=== PATIENT | female | born 1970 | race Caucasian/White ===

== ENCOUNTER 2019-10-05 17:26 | Emergency (ER) | payer OTHER, SELFPAY ==
[2019-10-05 17:38] VITALS: BP 143/90; PULSE 108; RESP 18; TEMP 38.1; O2SAT 98
--- NOTE | 2019-10-05 17:54 | ED.GENADULT ---
HPI - General Adult General Chief complaint: Abdominal Pain Stated complaint: Pressure in Face Time Seen by Provider: 10/05/19 17:54 Source: patient and RN notes reviewed Mode of arrival: ambulatory Limitations: no limitations History of Present Illness HPI narrative: 48-year-old female presents with complaints of upper respiratory infection, facial congestion, LT facial pressure, and LT otalgia for 1 day. Orajel today and daily saline nasal lavage without relief. History of sinusitis. No facial swelling. Denies cough. Denies chest congestion. Nasal congestion without rhinorrhea. Denies sore throat. No high fevers, drooling, neck or throat swelling. No voice change. No nausea, vomiting, or abdominal pain. Tolerating liquids well. Denies headaches, chills, dyspnea, difficulty swallowing, jaw pain, dental pain, foreign body sensation, and rash. No chest pain or shortness of breath. Remains active. Some parts of this dictation were generated by voice recognition software and may contain typographical and/or grammatical inaccuracies. Related Data Home Medications Medication Instructions Recorded Confirmed albuterol sulfate 90 mcg/actuation 1 puff INHALATION Q4H PRN 07/19/19 10/05/19 aerosol inhaler conjugated estrogens 0.625 mg/gram 0.625 mg VAGINAL DAILY 07/19/19 10/05/19 vaginal cream levothyroxine 175 mcg tablet 175 mcg PO DAILY 07/19/19 10/05/19 omeprazole 40 mg capsule,delayed 40 mg PO DAILY 07/19/19 10/05/19 release semaglutide [Ozempic] mg SUBCUT 10/05/19 Allergies Allergy/AdvReac Type Severity Reaction Status Date / Time metformin Allergy Mild stomach Verified 10/05/19 17:46 cramps quinapril Allergy Unknown Unknown Verified 10/05/19 17:46 Review of Systems Review of Systems: Narrative: CONSTITUTIONAL: Denies fever, chills, sweats. EYES: Denies visual changes, redness, discharge. ENT: Complains of congestion, facial congestion and pressure, LT otalgia. Denies rhinorrhea, sore throat. CARDIOVASCULAR: Denies chest pain, palpitations, edema. RESPIRATORY: Denies dyspnea, wheezing. Complains of dry cough/intermittent productive cough. GASTROINTESTINAL: Denies abdominal pain, nausea, vomiting, diarrhea. GENITOURINARY: Denies dysuria, hematuria, abnormal discharge SKIN: Denies rash or itching. MUSCULOSKELETAL: Denies acute back pain, joint pain, or myalgia. NEUROLOGIC: Denies numbness, or focal weakness. PSYCHIATRIC: Denies anxiety or depression. [facility] Past Medical History Medical History (Updated 10/05/19 @ 18:[address]) Asthma delivery delivered Essential (primary) hypertension History of gastroesophageal reflux (GERD) Hypothyroidism, unspecified Mixed hyperlipidemia Narcolepsy without cataplexy Obesity, unspecified Sinusitis chronic, ethmoidal Type 2 diabetes mellitus without complication, without long-term current use of insulin Surgical History Surgical History (Updated 10/05/19 @ 18:[address]) H/O section X3 History of cholecystectomy History of knee surgery Right knee for Torn meniscus Family History Family History (Updated 10/05/19 @ 18:[address]) Mother Family history of malignant neoplasm of ovary, Onset Age: 55 Hypertension Father Hypertension Heart disease Sibling Hypertension Diabetes mellitus Social History Social History (Updated 10/05/19 @ 18:[address]) Smoking packs per day: 1 Smoking cigarettes per day: 20.0 Years smoked: 25 Smoking pack-years: 25.00 Smoking status: Current every day smoker Second hand tobacco smoke exposure: Yes Alcohol intake: current Alcohol use details: Occasional Substance use: never Substance use type: does not use Living arrangements: with family Gender identity (if verbalized by the patient): Female Comments At time of signature, agree with nurse past medical, surgical,
[2019-10-05 18:45] VITALS: BP 130/86; PULSE 100
== END 2019-10-05 18:25 | disposition home or self-care (01) ==
PROVIDERS: Emergency Provider Nurse Practitioner Family; PCP Family Medicine
DX: J00 Acute nasopharyngitis [common cold] (principal); J01.90 Acute sinusitis, unspecified; H92.02 Otalgia, left ear; F17.210 Nicotine dependence, cigarettes, uncomplicated; J45.909 Unspecified asthma, uncomplicated; I10 Essential (primary) hypertension; K21.9 Gastro-esophageal reflux disease without esophagitis; E03.9 Hypothyroidism, unspecified; E78.2 Mixed hyperlipidemia; G47.419 Narcolepsy without cataplexy; E11.9 Type 2 diabetes mellitus without complications; E66.9 Obesity, unspecified; Z68.41 Body mass index [BMI] 40.0-44.9, adult
CPT/HCPCS: 99213; G0463

== ENCOUNTER 2019-11-06 10:11 | Outpatient (CLI) | payer OTHER, SELFPAY ==
[2019-11-06 10:41] LABS: Hematocrit 44.6 % (37.0-47.0); Hemoglobin 14.7 g/dL (12.0-15.0); Mean Corpuscular Hemoglobin 28.5 pg (26-34); Mean Corpuscular Volume 86.6 fl (80-100); Mean Platelet Volume 10.1 fl (7.4-10.4); Platelet Count Result 273 k/mm3 (150-375); Red Blood Count 5.15 M/mm3 (4.2-5.4); Red Cell Distribution Width 13.3 % (11.5-14.5); White Blood Count 6.6 K/mm3 (4.5-10.0)
[2019-11-06 10:47] LABS: Hemoglobin A1C 6.5 % (<5.7)
[2019-11-06 10:52] LABS: Alanine Aminotransferase 47 U/L (4-35); Albumin Level 4.2 g/dL (3.5-5.1); Alkaline Phosphatase 109 U/L (38-126); Aspartate Amino Transferase 38 U/L (14-36); Bilirubin,Total 0.4 mg/dL (0.2-1.3); Blood Urea Nitrogen 17 mg/dL (7-17); Calcium 9.8 mg/dL (8.4-10.2); Carbon Dioxide 29 mmol/L (22-30); Chloride 102 mmol/L (98-107); Cholesterol 214 mg/dL (0-200); Estimated Glomerular Filt Rate > 60; Glucose 126 mg/dL (65-105); HDL Direct 49 mg/dL; Potassium 3.6 mmol/L (3.4-5.0); Sodium 139 mmol/L (137-145); Triglycerides 88 mg/dL (<150)
[2019-11-06 11:03] LABS: LDL Cholesterol Direct 131 mg/dL
[2019-11-06 11:21] LABS: Thyroid Stimulating Hormone 0.097 uIU/mL (0.465-4.680)
== END 2019-11-06 10:12 | disposition home or self-care (01) ==
PROVIDERS: PCP Family Medicine; Visit Provider Family Medicine
DX: G47.419 Narcolepsy without cataplexy (principal); I10 Essential (primary) hypertension; E11.9 Type 2 diabetes mellitus without complications; E78.2 Mixed hyperlipidemia; E04.9 Nontoxic goiter, unspecified
CPT/HCPCS: 36415; 80053; 80061; 83036; 84443; 85027

== ENCOUNTER 2020-02-07 07:47 | Outpatient (CLI) | payer OTHER, SELFPAY ==
--- NOTE | ~2020-02-07 | MM_ITS ---
EXAMINATION: MM screening nelida BI w edilson HISTORY: Screening mammogram TECHNIQUE: Craniocaudal and mediolateral oblique 3-D tomosynthesis images were obtained and synthetic 2-D images were generated. CAD analysis was submitted and interpreted. COMPARISON: 07/27/2018, 12/17/2015, 10/09/2013 bilateral digital screening mammogram examinations BREAST PARENCHYMAL COMPOSITION: The breasts are almost entirely fatty. FINDINGS: Stable low-density circumscribed opacities or contiguous opacities in posterior aspect of l ower outer quadrant of right breast. There is no evidence of suspicious mass, calcification, or archi tectural distortion to suggest malignancy in either breast. There has been no suspicious interval venkat nge. IMPRESSION: 1. No mammographic evidence of malignancy. 2. Recommend routine screening mammography in one year. BI-RADS Category 2: Benign finding(s). Reviewed, dictated and finalized at location A.
== END 2020-02-07 07:48 | disposition home or self-care (01) ==
PROVIDERS: PCP Family Medicine; Visit Provider Family Medicine
DX: Z12.31 Encounter for screening mammogram for malignant neoplasm of breast (principal)
CPT/HCPCS: 77063; 77067

== ENCOUNTER 2020-02-27 07:37 | Outpatient (CLI) | payer OTHER, SELFPAY ==
[2020-02-27 08:07] LABS: Hematocrit 43.7 % (37.0-47.0); Hemoglobin 14.4 g/dL (12.0-15.0); Mean Corpuscular Hemoglobin 29.6 pg (26-34); Mean Corpuscular Volume 89.9 fl (80-100); Mean Platelet Volume 10.2 fl (7.4-10.4); Platelet Count Result 292 k/mm3 (150-375); Red Blood Count 4.86 M/mm3 (4.2-5.4); Red Cell Distribution Width 13.1 % (11.5-14.5); White Blood Count 7.6 K/mm3 (4.5-10.0)
[2020-02-27 08:14] LABS: Alanine Aminotransferase 66 U/L (4-35); Albumin Level 4.1 g/dL (3.5-5.1); Alkaline Phosphatase 105 U/L (38-126); Anion Gap 7 mmol/L (8-16); Aspartate Amino Transferase 47 U/L (14-36); Bilirubin,Total 0.4 mg/dL (0.2-1.3); Blood Urea Nitrogen 16 mg/dL (7-17); Calcium 9.3 mg/dL (8.4-10.2); Carbon Dioxide 27 mmol/L (22-30); Chloride 101 mmol/L (98-107); Estimated Glomerular Filt Rate > 60; Glucose 146 mg/dL (65-105); Potassium 3.9 mmol/L (3.4-5.0); Sodium 135 mmol/L (137-145)
[2020-02-27 08:15] LABS: Hemoglobin A1C 6.7 % (<5.7)
[2020-02-27 15:35] LABS: Free T4 Free Thyroxine Reflex 0.85 ng/dL (0.78-2.19)
[2020-02-27 16:20] LABS: Total Triiodothyronine (T3) 0.86 NG/ML (0.97-1.69)
== END 2020-02-27 07:38 | disposition home or self-care (01) ==
LOC: ANHLAB 07:39
PROVIDERS: PCP Family Medicine; Visit Provider Physician Assistant
DX: E03.9 Hypothyroidism, unspecified (principal); I10 Essential (primary) hypertension; E78.2 Mixed hyperlipidemia; E11.9 Type 2 diabetes mellitus without complications
CPT/HCPCS: 36415; 80053; 83036; 84439; 84443; 84480; 85027

== ENCOUNTER 2020-04-28 07:20 | Outpatient (CLI) | payer OTHER, SELFPAY ==
[2020-04-28 08:56] LABS: Free T4 Free Thyroxine 1.42 ng/mL (0.78-2.19)
[2020-04-28 08:57] LABS: Total Triiodothyronine (T3) 0.99 NG/ML (0.97-1.69)
== END 2020-04-28 07:21 | disposition home or self-care (01) ==
PROVIDERS: PCP Family Medicine; Visit Provider Family Medicine
DX: E04.9 Nontoxic goiter, unspecified (principal); E03.9 Hypothyroidism, unspecified
CPT/HCPCS: 36415; 84439; 84443; 84480

== ENCOUNTER 2021-01-01 07:13 | Outpatient (CLI) | payer OTHER, SELFPAY ==
[2021-01-01 08:04] LABS: Alanine Aminotransferase 49 U/L (4-35); Alkaline Phosphatase 90 U/L (38-126); Anion Gap 9 mmol/L (8-16); Aspartate Amino Transferase 35 U/L (14-36); Bilirubin,Total 0.3 mg/dL (0.2-1.3); Blood Urea Nitrogen 18 mg/dL (7-17); Calcium 9.7 mg/dL (8.4-10.2); Carbon Dioxide 26 mmol/L (22-30); Chloride 103 mmol/L (98-107); Cholesterol 223 mg/dL (0-200); Estimated Glomerular Filt Rate > 60; Glucose 139 mg/dL (65-105); HDL Direct 65 mg/dL; Potassium 4.1 mmol/L (3.4-5.0); Sodium 138 mmol/L (137-145); Triglycerides 88 mg/dL (<150)
[2021-01-01 08:06] LABS: Hemoglobin A1C 6.5 % (<5.7)
[2021-01-01 08:16] LABS: LDL Cholesterol Direct 117 mg/dL
[2021-01-01 08:23] LABS: Creatinine Urine 121.4 mg/dL
[2021-01-01 08:33] LABS: MALB Creatinine Ratio < 4.9 mg/g (0-30); Microalbumin Urine Random < 6.0 mg/L (0-16.7)
[2021-01-01 09:27] LABS: Free T4 Free Thyroxine 0.95 ng/mL (0.78-2.19)
== END 2021-01-01 07:14 | disposition home or self-care (01) ==
PROVIDERS: PCP Family Medicine; Visit Provider Family Medicine
DX: E03.9 Hypothyroidism, unspecified (principal); E11.9 Type 2 diabetes mellitus without complications; E78.2 Mixed hyperlipidemia; I10 Essential (primary) hypertension
CPT/HCPCS: 36415; 80053; 80061; 82043; 83036; 84439; 84443

== ENCOUNTER 2021-06-03 17:29 | Emergency (ER) | payer OTHER, SELFPAY ==
[2021-06-03 17:36] VITALS: BP 143/92; PULSE 94; RESP 18; TEMP 35.8; O2SAT 99
--- NOTE | 2021-06-03 17:44 | ED.URI ---
HPI - URI/Sore Throat General Chief Complaint: Upper Respiratory Infection Stated Complaint: Congestion,Sinus Source: patient and RN notes reviewed Mode of arrival: ambulatory History of Present Illness HPI Narrative: This is a 50-year-old female who presented to urgent care with complaints of sore throat, nasal, ear and chest congestion, headaches, she notes that he has a cough with sputum that a brownish color. Patient has a history of having sinus infection she has had for the last 3 days the patient denies SOB, CP, palpitation, extremity numbness, lightheadedness, dizziness, constipation, diarrhea, chills, or fever. MD elicited complaint: cough, sore throat, rhinorrhea, nasal congestion and sinus pain Related Data Allergies Allergy/AdvReac Type Severity Reaction Status Date / Time metformin Allergy Mild stomach Verified 06/03/21 17:36 cramps quinapril Allergy Mild Hives Verified 06/03/21 17:36 Review of Systems Review of Systems: A 14 organ system Review of Systems was performed and pertinent positives included in the HPI, otherwise remaining ROS is negative. [facility] Past Medical History Medical History Asthma delivery delivered Essential (primary) hypertension History of gastroesophageal reflux (GERD) Hypothyroidism, unspecified Mixed hyperlipidemia Morbid (severe) obesity due to excess calories Narcolepsy without cataplexy Obesity, unspecified Sinusitis chronic, ethmoidal Type 2 diabetes mellitus without complication, without long-term current use of insulin Surgical History Surgical History H/O section X3 History of cholecystectomy History of knee surgery Right knee for Torn meniscus Family History Family History Mother Family history of malignant neoplasm of ovary, Onset Age: 55 Hypertension Father Hypertension Heart disease Sibling Hypertension Diabetes mellitus Social History Social History Social History: Smoking packs per day: 0.5 Smoking cigarettes per day: 10.0 Years smoked: 25 Smoking pack-years: 12.50 Smoking status: Former smoker Tobacco type: cigarettes Second hand tobacco smoke exposure: Yes Alcohol intake: current Alcohol use details: Occasionally Substance use: never Substance use type: does not use Gender identity (if verbalized by the patient): Female Sexual Orientation (if Verbalized by the Patient): Straight or Heterosexual Exam Narrative: GENERAL: This is a well-nourished, well-developed patient, in no apparent distress. HEAD: normocephalic, atraumatic. Maxillary tenderness EYES: PERRL. Sclera clear/white. Vision is grossly intact. EARS: External ears normal, auditory canals clear and without drainage, TMs normal without perforation. Hearing grossly intact. NOSE: External nose normal with no obvious nasal discharge, nares without redness, no rhinorrhea. THROAT: Mucous membranes moist, posterior pharynx edematous with erythema. NECK: Neck supple, non-tender without lymphadenopathy, masses or thyromegaly. CARDIOVASCULAR: Regular rate and rhythm without murmurs, gallops, or rubs. RESPIRATORY: Clear to auscultation. Breath sounds equal bilaterally. No wheezes, rales, or rhonchi. GASTROINTESTINAL: Abdomen soft, non-tender, nondistended. Bowel sounds are active. No hepato-splenomegaly, or palpable masses. No guarding. SKIN: warm, intact with no suspicious lesions or rash, good texture and turgor. NEURO: awake, alert, and oriented to person, place and time. There were no obvious focal neurologic abnormalities. Steady gait EXTREMITIES: Normal range of motion. No edema. No calf tenderness. Negative Homans sign bilaterally. BACK: Nontender without deformity or crepitance. No flank tenderne
== END 2021-06-03 18:00 | disposition home or self-care (01) ==
PROVIDERS: Emergency Provider Nurse Practitioner; PCP Family Medicine
DX: J32.9 Chronic sinusitis, unspecified (principal); I10 Essential (primary) hypertension; E78.2 Mixed hyperlipidemia; E11.9 Type 2 diabetes mellitus without complications; Z87.891 Personal history of nicotine dependence
CPT/HCPCS: 99213; G0463

== ENCOUNTER 2021-07-27 07:38 | Outpatient (CLI) | payer OTHER, SELFPAY ==
[2021-07-27 08:06] LABS: Basophils Absolute Auto 0.1 K/mm3 (0.0-0.1); Basophils Percent Auto 0.9 % (0.2-1.2); Eosinophils Absolute Auto 0.2 K/mm3 (0-0.3); Hematocrit 44.4 % (37.0-47.0); Hemoglobin 14.3 g/dL (12.0-15.0); Immature Granulocyte Absolute 0.02 K/mm3 (0.00-0.031); Immature Granulocyte Percent A 0.3 % (0-0.5); Lymphocytes Absolute Auto 2.14 K/mm3 (0.9-3.2); Lymphocytes Percent Auto 28.3 % (18.3-44.2); Mean Corpuscular HGB Conc 32.2 g/dl (32-36); Mean Corpuscular Hemoglobin 28.9 pg (26-34); Mean Corpuscular Volume 89.7 fl (80-100); Monocytes Absolute Auto 0.5 K/mm3 (0.1-0.6); Monocytes Percent Auto 7.1 % (2.6-8.5); Neutrophils Absolute Auto 4.6 K/mm3 (1.3-6.7); Neutrophils Percent Auto 60.4 % (45.5-73.1); Platelet Count Result 272 k/mm3 (150-375); Red Blood Count 4.95 M/mm3 (4.2-5.4); Red Cell Distribution Width 12.6 % (11.5-14.5); White Blood Count 7.6 K/mm3 (4.5-10.0)
[2021-07-27 08:15] LABS: Hemoglobin A1C 8.9 % (<5.7)
[2021-07-27 08:17] LABS: Alanine Aminotransferase 82 U/L (4-35); Albumin Level 4.3 g/dL (3.5-5.1); Alkaline Phosphatase 117 U/L (38-126); Anion Gap 8 mmol/L (8-16); Aspartate Amino Transferase 49 U/L (14-36); Bilirubin,Total 0.5 mg/dL (0.2-1.3); Blood Urea Nitrogen 17 mg/dL (7-17); Calcium 9.6 mg/dL (8.4-10.2); Carbon Dioxide 28 mmol/L (22-30); Chloride 99 mmol/L (98-107); Estimated Glomerular Filt Rate > 60; Glucose 157 mg/dL (65-110); Potassium 3.8 mmol/L (3.4-5.0); Sodium 135 mmol/L (137-145)
[2021-07-27 08:55] LABS: Free T4 Free Thyroxine 1.14 ng/mL (0.78-2.19)
== END 2021-07-27 07:39 | disposition home or self-care (01) ==
LOC: ANHLAB 07:40
PROVIDERS: Nurse Practitioner Gerontology; PCP Family Medicine; Visit Provider Family Medicine
DX: E11.9 Type 2 diabetes mellitus without complications (principal); E03.9 Hypothyroidism, unspecified; E78.2 Mixed hyperlipidemia
CPT/HCPCS: 36415; 80053; 83036; 84439; 84443; 84480; 85025

== ENCOUNTER 2021-08-10 07:52 | Outpatient (CLI) | payer OTHER, SELFPAY ==
--- NOTE | ~2021-08-10 | US_ITS ---
EXAMINATION: US pelvic complete DATE: 08/10/2021 08:33 INDICATION: Postmenopausal bleeding TECHNIQUE: Multiple transabdominal sonographic images of the pelvis were obtained. COMPARISON: 09/14/2016 FINDINGS: The uterus measures 11.0 x 3.6 x 4.4 cm. The endometrial complex measures 6 mm. The right o vary is not visualized however no right adnexal abnormality is seen. The left ovary measures 1.9 x 1. 1 x 1.4 cm. There is normal vascular flow in the left ovary. There is no free fluid in the pelvis. IMPRESSION: 1. No sonographic correlate for the patient's symptoms. Reviewed, dictated and finalized at location B. [employer]IAISON
== END 2021-08-10 07:53 | disposition home or self-care (01) ==
PROVIDERS: PCP Family Medicine; Visit Provider Family Medicine
DX: N95.0 Postmenopausal bleeding (principal)
CPT/HCPCS: 76856

== ENCOUNTER 2021-10-26 08:05 | Outpatient (CLI) | payer OTHER, SELFPAY ==
--- NOTE | ~2021-10-26 | MM_ITS ---
EXAMINATION: MM screening nelida BI w edilson HISTORY: Screening mammogram TECHNIQUE: Craniocaudal and mediolateral oblique 3-D tomosynthesis images were obtained and synthetic 2-D images were generated. CAD analysis was submitted and interpreted. COMPARISON: 02/07/2020, 07/27/2018, 12/17/2015 bilateral screening mammogram examinations BREAST PARENCHYMAL COMPOSITION: The breasts are almost entirely fatty. FINDINGS: Stable continuous circumscribed small opacities in the posterior lower outer right breast s wicho 2016. There is no evidence of suspicious mass, calcification, or architectural distortion to sug gest malignancy in either breast. There has been no suspicious interval change. IMPRESSION: 1. No mammographic evidence of malignancy. 2. Recommend routine screening mammography in one year. BI-RADS Category 2: Benign finding(s). Reviewed, dictated and finalized at location A.
== END 2021-10-26 08:06 | disposition home or self-care (01) ==
LOC: ANHIMG 08:08
PROVIDERS: PCP Family Medicine; Visit Provider Family Medicine
DX: Z12.31 Encounter for screening mammogram for malignant neoplasm of breast (principal)
CPT/HCPCS: 77063; 77067

== ENCOUNTER 2021-10-28 07:28 | Outpatient (CLI) | payer OTHER, SELFPAY ==
[2021-10-28 08:11] LABS: Alanine Aminotransferase 57 U/L (4-35); Albumin Level 4.1 g/dL (3.5-5.1); Alkaline Phosphatase 101 U/L (38-126); Anion Gap 8 mmol/L (8-16); Aspartate Amino Transferase 46 U/L (14-36); Bilirubin,Total 0.4 mg/dL (0.2-1.3); Blood Urea Nitrogen 16 mg/dL (7-17); Calcium 9.3 mg/dL (8.4-10.2); Carbon Dioxide 25 mmol/L (22-30); Chloride 103 mmol/L (98-107); Cholesterol 210 mg/dL (0-200); Estimated Glomerular Filt Rate > 60; Glucose 168 mg/dL (65-110); HDL Direct 48 mg/dL; Potassium 3.9 mmol/L (3.4-5.0); Sodium 136 mmol/L (137-145); Triglycerides 109 mg/dL (<150)
[2021-10-28 08:28] LABS: LDL Cholesterol Direct 118 mg/dL
[2021-10-28 08:47] LABS: Thyroid Stimulating Hormone 0.079 uIU/mL (0.465-4.680); Total Triiodothyronine (T3) 1.48 NG/ML (0.97-1.69)
[2021-10-28 08:50] LABS: Hemoglobin A1C 6.7 % (<5.7)
== END 2021-10-28 07:29 | disposition home or self-care (01) ==
PROVIDERS: PCP Family Medicine; Visit Provider Family Medicine
DX: E03.9 Hypothyroidism, unspecified (principal); I10 Essential (primary) hypertension; E78.2 Mixed hyperlipidemia; E11.9 Type 2 diabetes mellitus without complications
CPT/HCPCS: 36415; 80053; 80061; 83036; 84439; 84443; 84480

== ENCOUNTER 2022-01-04 08:47 | Outpatient (CLI) | payer OTHER, SELFPAY ==
[2022-01-04 09:27] LABS: Basophils Absolute Auto 0.1 K/mm3 (0.0-0.1); Basophils Percent Auto 0.8 % (0.2-1.2); Eosinophils Absolute Auto 0.3 K/mm3 (0-0.3); Eosinophils Percent Auto 3.2 % (0-4.4); Hematocrit 47.7 % (37.0-47.0); Immature Granulocyte Absolute 0.03 K/mm3 (0.00-0.031); Immature Granulocyte Percent A 0.4 % (0-0.5); Lymphocytes Absolute Auto 2.11 K/mm3 (0.9-3.2); Lymphocytes Percent Auto 27.2 % (18.3-44.2); Mean Corpuscular HGB Conc 31.4 g/dl (32-36); Mean Corpuscular Hemoglobin 27.3 pg (26-34); Mean Corpuscular Volume 86.7 fl (80-100); Monocytes Absolute Auto 0.7 K/mm3 (0.1-0.6); Neutrophils Absolute Auto 4.6 K/mm3 (1.3-6.7); Neutrophils Percent Auto 59.4 % (45.5-73.1); Platelet Count Result 303 k/mm3 (150-375); Red Cell Distribution Width 14.2 % (11.5-14.5); White Blood Count 7.8 K/mm3 (4.5-10.0)
[2022-01-04 09:39] LABS: Alanine Aminotransferase 58 U/L (6-35); Albumin Level 4.1 g/dL (3.5-5.1); Alkaline Phosphatase 105 U/L (38-126); Anion Gap 6 mmol/L (8-16); Aspartate Amino Transferase 39 U/L (14-36); Bilirubin,Total 0.4 mg/dL (0.2-1.3); Blood Urea Nitrogen 16 mg/dL (7-17); Calcium 9.1 mg/dL (8.4-10.2); Carbon Dioxide 28 mmol/L (22-30); Chloride 103 mmol/L (98-107); Cholesterol 208 mg/dL (0-200); Estimated Glomerular Filt Rate > 60; Glucose 142 mg/dL (65-110); HDL Direct 45 mg/dL; Potassium 3.7 mmol/L (3.4-5.0); Sodium 137 mmol/L (137-145); Triglycerides 98 mg/dL (<150)
[2022-01-04 09:40] LABS: Alanine Aminotransferase 57 U/L (6-35); Aspartate Amino Transferase 55 U/L (14-36)
[2022-01-04 09:50] LABS: LDL Cholesterol Direct 122 mg/dL
[2022-01-04 10:10] LABS: Thyroid Stimulating Hormone 0.369 uIU/mL (0.465-4.680); Total Triiodothyronine (T3) 1.31 NG/ML (0.97-1.69)
[2022-01-06 03:23] LABS: Thyroid Peroxidase Antibodies 87 IU/mL (<9)
== END 2022-01-04 08:48 | disposition home or self-care (01) ==
PROVIDERS: PCP Family Medicine; Referring Provider Podiatrist Foot & Ankle Surgery; Visit Provider Nurse Practitioner Gerontology
DX: I10 Essential (primary) hypertension (principal); E78.2 Mixed hyperlipidemia; E11.9 Type 2 diabetes mellitus without complications; E03.9 Hypothyroidism, unspecified; B35.1 Tinea unguium
CPT/HCPCS: 36415; 80053; 80061; 84443; 84450; 84460; 84480; 85025; 86376

== ENCOUNTER 2022-01-22 10:10 | Outpatient (CLI) | payer OTHER, SELFPAY ==
--- NOTE | ~2022-01-22 | XR_ITS ---
EXAMINATION: XR chest 2V DATE: 01/22/2022 10:25 INDICATION: Dyspnea TECHNIQUE: PA and lateral views of the chest were obtained. COMPARISON: Chest radiograph dated 01/13/2012 FINDINGS: The lungs remain clear with no focal airspace opacities, pulmonary edema, pleural effusion or pneumot horax. The cardiomediastinal silhouette is normal. Visualized bones and soft tissues are unremarkable . IMPRESSION: 1. No acute cardiopulmonary disease. Reviewed, dictated and finalized at location B.
== END 2022-01-22 10:11 | disposition home or self-care (01) ==
PROVIDERS: PCP Family Medicine; Visit Provider Physician Assistant
DX: R06.00 Dyspnea, unspecified (principal)
CPT/HCPCS: 71046

== ENCOUNTER 2022-03-01 12:00 | Outpatient (CLI) | payer OTHER, SELFPAY ==
[2022-03-01 12:29] LABS: Basophils Absolute Auto 0.1 K/mm3 (0.0-0.1); Eosinophils Absolute Auto 0.2 K/mm3 (0-0.3); Eosinophils Percent Auto 2.6 % (0-4.4); Hematocrit 48.1 % (37.0-47.0); Immature Granulocyte Absolute 0.03 K/mm3 (0.00-0.031); Immature Granulocyte Percent A 0.4 % (0-0.5); Lymphocytes Absolute Auto 2.88 K/mm3 (0.9-3.2); Lymphocytes Percent Auto 35.8 % (18.3-44.2); Mean Corpuscular HGB Conc 31.2 g/dl (32-36); Mean Corpuscular Hemoglobin 28.1 pg (26-34); Mean Corpuscular Volume 90.2 fl (80-100); Monocytes Absolute Auto 0.7 K/mm3 (0.1-0.6); Monocytes Percent Auto 8.1 % (2.6-8.5); Neutrophils Absolute Auto 4.2 K/mm3 (1.3-6.7); Neutrophils Percent Auto 52.1 % (45.5-73.1); Platelet Count Result 277 k/mm3 (150-375); Red Blood Count 5.33 M/mm3 (4.2-5.4); Red Cell Distribution Width 14.9 % (11.5-14.5); White Blood Count 8.1 K/mm3 (4.5-10.0)
[2022-03-01 12:42] LABS: Alanine Aminotransferase 80 U/L (6-35); Albumin Level 4.2 g/dL (3.5-5.1); Alkaline Phosphatase 119 U/L (38-126); Anion Gap 10 mmol/L (8-16); Aspartate Amino Transferase 46 U/L (14-36); Bilirubin,Total 0.4 mg/dL (0.2-1.3); Blood Urea Nitrogen 14 mg/dL (7-17); Calcium 9.6 mg/dL (8.4-10.2); Carbon Dioxide 25 mmol/L (22-30); Chloride 100 mmol/L (98-107); Estimated Glomerular Filt Rate > 60; Glucose 133 mg/dL (65-110); Potassium 3.6 mmol/L (3.4-5.0); Sodium 135 mmol/L (137-145)
[2022-03-01 12:50] LABS: Hemoglobin A1C 7.5 % (<5.7)
[2022-03-01 13:03] LABS: Free T4 Free Thyroxine 1.67 ng/mL (0.78-2.19)
[2022-03-01 13:13] LABS: Total Triiodothyronine (T3) 1.01 NG/ML (0.97-1.69)
[2022-03-04 20:51] LABS: CRP, High Sensitivity >10.0 mg/L (***)
[2022-03-05 22:11] LABS: ANA Cascade Screen Negative (Negative)
== END 2022-03-01 12:01 | disposition home or self-care (01) ==
PROVIDERS: PCP Family Medicine; Visit Provider Nurse Practitioner Gerontology
DX: E03.9 Hypothyroidism, unspecified (principal); E66.01 Morbid (severe) obesity due to excess calories; E78.2 Mixed hyperlipidemia; I10 Essential (primary) hypertension; M79.10 Myalgia, unspecified site; Z68.42 Body mass index [BMI] 45.0-49.9, adult; R21 Rash and other nonspecific skin eruption; R53.83 Other fatigue
CPT/HCPCS: 36415; 80053; 82607; 83036; 84439; 84443; 84480; 85025; 86038; 86141

== ENCOUNTER 2022-03-10 09:02 | Outpatient (CLI) | payer OTHER, SELFPAY ==
--- NOTE | ~2022-03-10 | US_ITS ---
EXAMINATION: US abdomen complete DATE: 03/10/2022 09:30 INDICATION: Abnormal levels of other serum enzymes TECHNIQUE: Multiple grayscale and Doppler ultrasound images of the abdomen were obtained. COMPARISON: 09/18/2018 FINDINGS: The head and body of the pancreas are normal. The pancreatic tail is obscured by bowel gas. The liver is normal with normal echogenicity and echotexture. No surface nodularity. Normal hepatope antony flow in the main portal vein. Gallbladder is surgically absent. The normal common bile duct measu res 4 mm. The visualized portions of the aorta and inferior vena cava are normal. The right kidney measures 11.3 x 5.1 x 4.2 cm. The left kidney measures 10.9 x 4.7 x 5.2 cm. The kidn eys demonstrate normal parenchymal echogenicity. There is no hydronephrosis. The spleen is normal in appearance and measures 8.1 cm. IMPRESSION: 1. No sonographic correlate for the patient's symptoms. Reviewed, dictated and finalized at location A.
== END 2022-03-10 09:03 | disposition home or self-care (01) ==
PROVIDERS: PCP Family Medicine; Visit Provider Nurse Practitioner Gerontology
DX: R74.8 Abnormal levels of other serum enzymes (principal)
CPT/HCPCS: 76700

== ENCOUNTER 2022-03-12 07:52 | Outpatient (CLI) | payer OTHER, SELFPAY ==
[2022-03-12 09:28] LABS: Alanine Aminotransferase 78 U/L (6-35); Aspartate Amino Transferase 73 U/L (14-36)
[2022-03-12 10:12] LABS: Hepatitis B Surface Antigen Negative (Negative)
[2022-03-12 10:19] LABS: HAV RESULT Negative (Negative); Hepatitis B Core IgM Result Negative (Negative)
[2022-03-12 10:30] LABS: Hepatitis C Virus Antibody Negative (Negative)
== END 2022-03-12 07:53 | disposition home or self-care (01) ==
PROVIDERS: PCP Family Medicine; Visit Provider Physician Assistant
DX: R74.8 Abnormal levels of other serum enzymes (principal)
CPT/HCPCS: 36415; 80074; 84450; 84460

== ENCOUNTER 2022-04-13 08:33 | Outpatient (CLI) | payer OTHER, SELFPAY ==
[2022-04-13 09:25] LABS: Alanine Aminotransferase 71 U/L (6-35); Aspartate Amino Transferase 53 U/L (14-36)
== END 2022-04-13 08:34 | disposition home or self-care (01) ==
PROVIDERS: PCP Family Medicine; Visit Provider Nurse Practitioner Gerontology
DX: R74.8 Abnormal levels of other serum enzymes (principal)
CPT/HCPCS: 36415; 84450; 84460

== ENCOUNTER 2022-04-17 12:58 | Emergency (ER) | payer OTHER, SELFPAY ==
[2022-04-17 13:06] VITALS: BP 120/81; PULSE 106; RESP 18; TEMP 37.1; O2SAT 98
[2022-04-17] MEDS: TETANUS,DIPHTHERIA,AC PERTUSSIS ADULT (0.5 ML) BOOSTRIX IM (13:13)
--- NOTE | 2022-04-17 13:48 | ED.WOUNDLAC ---
HPI - Wound/Laceration General Chief Complaint: Wound/Laceration Stated Complaint: Cut Finger Rt Hand History of Present Illness HPI narrative: This a 51-year-old female comes in with a laceration to her right foot pointer finger. Patient's laceration is 1.5 cm if you measured all of it not consecutively is a regular. Patient denies any nausea vomiting diarrhea or losing any consciousness patient states that her tetanus is been over 5 years ago she believes we will go ahead and administer 1 due to she is not for me when she cut her finger she cut it on a weed [place]. Patient states she only has pains when it is palpated although her finger is throbbing bruising has already started skin is well approximated at this time. Related Data Allergies Allergy/AdvReac Type Severity Reaction Status Date / Time metformin AdvReac Mild stomach Verified 04/17/22 13:00 cramps quinapril AdvReac Mild Hives Verified 04/17/22 13:00 Review of Systems Review of Systems: laceration on right index finger All systems reviewed & are unremarkable except as noted in HPI and below PMFSH Past Medical History Medical History Arthritis Asthma delivery delivered Essential (primary) hypertension History of gastroesophageal reflux (GERD) Hypothyroidism, unspecified Mixed hyperlipidemia Narcolepsy without cataplexy Type 2 diabetes mellitus without complication, without long-term current use of insulin Surgical History Surgical History H/O section X3 History of cholecystectomy 2009 History of knee surgery 2016, Right knee for Torn meniscus History of laparoscopy 1993 Family History Family History Mother Family history of malignant neoplasm of ovary, Onset Age: 55 Hypertension Diabetes mellitus Father Hypertension Heart disease Sibling Asthma Anxiety and depression Thyroid disorder Grandparent Lung cancer Diabetes mellitus Social History Social History (Updated 03/01/22 @ 11:17 by Shirlene Oneal) Social History: Smoking packs per day: 0.5 Smoking cigarettes per day: 10.0 Years smoked: 25 Smoking pack-years: 12.50 Smoking status: Former smoker Second hand tobacco smoke exposure: Yes Alcohol intake: current Alcohol use details: Occasionally Substance use: never Substance use type: does not use Gender identity (if verbalized by the patient): Female Sexual Orientation (if Verbalized by the Patient): Straight or Heterosexual Agree to blood products: Yes Exam Narrative: GENERAL:Well-appearing, well-nourished, and in no acute distress. HEAD:Normocephalic, EYES: PERRLA. ENT: Nares clear, no rhinorrhea or epistaxis. Mucous membranes moist. CHEST: No respiratory distress. HEART: Regular rate and rhythm.. Normal peripheral pulses. ABDOMEN: Soft, nontender, nondistended, EXTREMITIES: Normal range of motion. No edema.right pointer finger laceration some bleeding noted minimal SKIN: Warm, dry, no rash. NEURO: No focal deficits. Alert and oriented x3. Course Course Emergency Course: Had a conversation with patient as she states she is prediabetic last blood sugar was 136 states that she checks it on a daily basis runs around 1 12-1 36 has not been higher than 140. Patient denies taking any insulin explained to patient the importance of monitoring it to make sure she has good healing except gave her anticipatory needs of when to return signs and symptoms of infection noted as well come back for fever or go to the closest emergency room. Level of Care: Express Care Visit Vital Signs Vital signs: Vital Signs Temperature 98.7 F 04/17/22 13:06 Pulse Rate 106 H 04/17/22 13:06 Respiratory Rate 18 04/17/22 13:06 Blood Pressure 120/81 04/17/22 13:06 Pulse Oximetry 98 04/17/22 13:06 Ox
== END 2022-04-17 13:58 | disposition home or self-care (01) ==
PROVIDERS: Emergency Provider Nurse Practitioner Family; PCP Family Medicine
DX: S61.210A Laceration without foreign body of right index finger without damage to nail, initial encounter (principal); W29.8XXA Contact with other powered hand tools and household machinery, initial encounter; Z23 Encounter for immunization; Z87.891 Personal history of nicotine dependence; M19.90 Unspecified osteoarthritis, unspecified site; J45.909 Unspecified asthma, uncomplicated; I10 Essential (primary) hypertension; K21.9 Gastro-esophageal reflux disease without esophagitis; E03.9 Hypothyroidism, unspecified; E78.2 Mixed hyperlipidemia; E11.9 Type 2 diabetes mellitus without complications; G47.419 Narcolepsy without cataplexy
CPT/HCPCS: 12001; 90471; 90715; 99212; G0463

== ENCOUNTER 2022-04-21 17:04 | Outpatient (CLI) | payer OTHER, SELFPAY ==
--- NOTE | ~2022-04-21 | XR_ITS ---
EXAMINATION: XR shoulder LT min 2V DATE: 04/21/2022 17:24 INDICATION: Left shoulder pain TECHNIQUE: AP internally and externally rotated, AP oblique externally rotated and transscapular Y vi ews of the left shoulder were obtained. COMPARISON: None FINDINGS: Normal alignment. No fracture. Glenohumeral joint is normal. Mild acromioclavicular osteoarthritis. Visualized left lung is clear. Small calcified nodule at the right apex consistent with old granuloma tous disease. IMPRESSION: Mild left acromioclavicular osteoarthritis. Reviewed, dictated and finalized at location B.
== END 2022-04-21 17:05 | disposition home or self-care (01) ==
LOC: ANHIMG 17:11
PROVIDERS: PCP Family Medicine; Visit Provider Nurse Practitioner Gerontology
DX: M19.012 Primary osteoarthritis, left shoulder (principal)
CPT/HCPCS: 73030

== ENCOUNTER 2022-05-18 12:38 | Outpatient (CLI) | payer OTHER, SELFPAY ==
[2022-05-18 13:09] LABS: Alanine Aminotransferase 70 U/L (6-35); Aspartate Amino Transferase 45 U/L (14-36)
== END 2022-05-18 12:39 | disposition home or self-care (01) ==
LOC: ANHLAB 12:44
PROVIDERS: Physician Assistant; PCP Family Medicine; Visit Provider Nurse Practitioner Gerontology
DX: R74.8 Abnormal levels of other serum enzymes (principal)
CPT/HCPCS: 36415; 84450; 84460

== ENCOUNTER 2022-08-14 10:15 | Emergency (ER) | payer OTHER, SELFPAY ==
[2022-08-14 10:44] VITALS: BP 104/63; PULSE 95; RESP 18; TEMP 36.7; O2SAT 97
--- NOTE | 2022-08-14 10:51 | ED.GENADULT ---
HPI - General Adult General Chief complaint: Upper Respiratory Infection Stated complaint: congestion,sorethroat,bilateral ear pain Time Seen by Provider: 08/14/22 10:51 Source: patient Mode of arrival: ambulatory Limitations: no limitations History of Present Illness HPI narrative: 51-year-old female patient presents to the [facility] with complaints of cold symptoms for the past 10-11 days. Patient states she has had a cough, congestion, cough and sputum, sore throat. Denies fevers, body aches or chills. Denies any abdominal pain, nausea, vomiting or diarrhea. Patient does have history of asthma since she has been using the inhaler but felt like it did not really do much. Related Data Allergies Allergy/AdvReac Type Severity Reaction Status Date / Time metformin AdvReac Mild stomach Verified 04/21/22 16:30 cramps quinapril AdvReac Mild Hives Verified 04/21/22 16:30 Review of Systems Review of Systems: CONSTITUTIONAL: Denies fever, chills, or sweats. EYES: Denies visual changes, redness, or discharge. ENT: Denies rhinorrhea, congestion, sore throat, or otalgia. CARDIOVASCULAR: Denies chest pain, palpitations, or edema. RESPIRATORY: Denies cough or dyspnea. GASTROINTESTINAL: Denies abdominal pain, nausea, vomiting, or diarrhea. GENITOURINARY: Denies dysuria or hematuria. SKIN: Denies rash or itching. MUSCULOSKELETAL: Denies back pain, joint pain, or myalgia. NEUROLOGIC: Denies headache, numbness, or weakness. PSYCHIATRIC: Denies anxiety or depression. [facility] Past Medical History Medical History Arthritis Asthma delivery delivered Essential (primary) hypertension History of gastroesophageal reflux (GERD) Hypothyroidism, unspecified Mixed hyperlipidemia Narcolepsy without cataplexy Type 2 diabetes mellitus without complication, without long-term current use of insulin Surgical History Surgical History H/O section X3 History of cholecystectomy 2009 History of knee surgery 2016, Right knee for Torn meniscus History of laparoscopy 1993 Family History Family History Mother Family history of malignant neoplasm of ovary, Onset Age: 55 Hypertension Diabetes mellitus Father Hypertension Heart disease Sibling Asthma Anxiety and depression Thyroid disorder Grandparent Lung cancer Diabetes mellitus Social History Social History Social History: Smoking packs per day: 0.5 Smoking cigarettes per day: 10.0 Years smoked: 25 Smoking pack-years: 12.50 Smoking status: Former smoker Second hand tobacco smoke exposure: Yes Alcohol intake: current Alcohol use details: Occasionally Substance use: never Substance use type: does not use Living arrangements: with family Occupation/Education: occupation Gender identity (if verbalized by the patient): Female Sexual Orientation (if Verbalized by the Patient): Straight or Heterosexual Agree to blood products: Yes Comments At the time of my signature I agree with nursing past medical history, surgical, social, and family history. There is no relevant family history pertinent to the presenting complaint. Exam Narrative: GENERAL: Well-appearing, well-nourished, and in no acute distress. HEAD: Normocephalic, atraumatic. EYES: PERRLA and EOMI. ENT: Nares Erythema and edema noted bilaterally, no rhinorrhea or epistaxis. Mucous membranes moist. posterior pharynx with no erythema, tonsillar enlargement, exudates or lesions present. Bilateral TMs are clear no erythema or foreign bodies the canal. NECK: Supple. No lymphadenopathy CHEST: Clear to auscultation. No respiratory distress. HEART: Regular rate and rhythm. No murmur heard. Normal peripheral pulses. ABDOMEN: Soft, nonten
== END 2022-08-14 11:44 | disposition home or self-care (01) ==
PROVIDERS: Emergency Provider Nurse Practitioner Family; PCP Family Medicine
DX: J06.9 Acute upper respiratory infection, unspecified (principal); I10 Essential (primary) hypertension; J45.909 Unspecified asthma, uncomplicated; E03.9 Hypothyroidism, unspecified; E78.2 Mixed hyperlipidemia; E11.9 Type 2 diabetes mellitus without complications; Z87.891 Personal history of nicotine dependence
CPT/HCPCS: 87081; 87880; 99213; G0463

== ENCOUNTER 2022-11-06 07:15 | Outpatient (CLI) | payer OTHER, SELFPAY ==
[2022-11-06 07:59] LABS: Basophils Absolute Auto 0.1 K/mm3 (0.0-0.1); Basophils Percent Auto 0.9 % (0.2-1.2); Eosinophils Absolute Auto 0.3 K/mm3 (0-0.3); Eosinophils Percent Auto 3.5 % (0-4.4); Hematocrit 48.8 % (37.0-47.0); Hemoglobin 15.2 g/dL (12.0-15.0); Immature Granulocyte Absolute 0.01 K/mm3 (0.00-0.031); Immature Granulocyte Percent A 0.1 % (0-0.5); Lymphocytes Absolute Auto 2.26 K/mm3 (0.9-3.2); Lymphocytes Percent Auto 30.1 % (18.3-44.2); Mean Corpuscular HGB Conc 31.1 g/dl (32-36); Mean Corpuscular Hemoglobin 27.4 pg (26-34); Mean Corpuscular Volume 88.1 fl (80-100); Mean Platelet Volume 10.8 fl (7.4-10.4); Monocytes Absolute Auto 0.6 K/mm3 (0.1-0.6); Neutrophils Absolute Auto 4.3 K/mm3 (1.3-6.7); Neutrophils Percent Auto 57.4 % (45.5-73.1); Platelet Count Result 263 k/mm3 (150-375); Red Blood Count 5.54 M/mm3 (4.2-5.4); Red Cell Distribution Width 13.5 % (11.5-14.5); White Blood Count 7.5 K/mm3 (4.5-10.0)
[2022-11-06 09:05] LABS: Alanine Aminotransferase 65 U/L (6-35); Albumin Level 4.2 g/dL (3.5-5.1); Alkaline Phosphatase 93 U/L (38-126); Anion Gap 7 mmol/L (8-16); Aspartate Amino Transferase 42 U/L (14-36); Bilirubin,Total 0.5 mg/dL (0.2-1.3); Blood Urea Nitrogen 19 mg/dL (7-17); Calcium 9.2 mg/dL (8.4-10.2); Carbon Dioxide 29 mmol/L (22-30); Chloride 100 mmol/L (98-107); Cholesterol 218 mg/dL (0-200); Estimated Glomerular Filt Rate > 60; Glucose 175 mg/dL (65-110); HDL Direct 48 mg/dL; Sodium 136 mmol/L (137-145); Triglycerides 103 mg/dL (<150)
[2022-11-06 09:10] LABS: Hemoglobin A1C 7.7 % (<5.7)
[2022-11-06 09:16] LABS: LDL Cholesterol Direct 137 mg/dL
[2022-11-06 10:03] LABS: Total Triiodothyronine (T3) 0.98 NG/ML (0.97-1.69)
== END 2022-11-06 07:16 | disposition home or self-care (01) ==
LOC: ANHLAB 07:17
PROVIDERS: PCP Family Medicine; Visit Provider Nurse Practitioner Gerontology
DX: E03.9 Hypothyroidism, unspecified (principal); E11.9 Type 2 diabetes mellitus without complications; E78.2 Mixed hyperlipidemia; I10 Essential (primary) hypertension
CPT/HCPCS: 36415; 80053; 80061; 83036; 84443; 84480; 85025

== ENCOUNTER 2023-02-10 08:24 | Outpatient (CLI) | payer OTHER, SELFPAY ==
[2023-02-10 08:44] LABS: Basophils Absolute Auto 0.1 K/mm3 (0.0-0.1); Basophils Percent Auto 0.7 % (0.2-1.2); Eosinophils Absolute Auto 0.2 K/mm3 (0-0.3); Hematocrit 46.6 % (37.0-47.0); Hemoglobin 14.9 g/dL (12.0-15.0); Immature Granulocyte Absolute 0.03 K/mm3 (0.00-0.031); Immature Granulocyte Percent A 0.4 % (0-0.5); Lymphocytes Absolute Auto 1.98 K/mm3 (0.9-3.2); Lymphocytes Percent Auto 24.5 % (18.3-44.2); Mean Corpuscular Hemoglobin 27.6 pg (26-34); Mean Corpuscular Volume 86.5 fl (80-100); Monocytes Absolute Auto 0.6 K/mm3 (0.1-0.6); Monocytes Percent Auto 7.3 % (2.6-8.5); Neutrophils Absolute Auto 5.2 K/mm3 (1.3-6.7); Neutrophils Percent Auto 64.1 % (45.5-73.1); Platelet Count Result 299 k/mm3 (150-375); Red Blood Count 5.39 M/mm3 (4.2-5.4); Red Cell Distribution Width 13.8 % (11.5-14.5); White Blood Count 8.1 K/mm3 (4.5-10.0)
[2023-02-10 08:59] LABS: Alanine Aminotransferase 42 U/L (6-35); Albumin Level 4.3 g/dL (3.5-5.1); Alkaline Phosphatase 95 U/L (38-126); Anion Gap 8 mmol/L (8-16); Aspartate Amino Transferase 31 U/L (14-36); Bilirubin,Total 0.3 mg/dL (0.2-1.3); Blood Urea Nitrogen 22 mg/dL (7-17); Calcium 9.5 mg/dL (8.4-10.2); Carbon Dioxide 27 mmol/L (22-30); Chloride 101 mmol/L (98-107); Estimated Glomerular Filt Rate > 60; Glucose 125 mg/dL (65-110); Potassium 3.9 mmol/L (3.4-5.0); Sodium 136 mmol/L (137-145)
[2023-02-10 09:21] LABS: Hemoglobin A1C 6.6 % (<5.7)
== END 2023-02-10 08:25 | disposition home or self-care (01) ==
LOC: ANHLAB 08:25
PROVIDERS: PCP Family Medicine; Visit Provider Nurse Practitioner Gerontology
DX: D58.2 Other hemoglobinopathies (principal); E11.9 Type 2 diabetes mellitus without complications; R74.8 Abnormal levels of other serum enzymes
CPT/HCPCS: 36415; 80053; 83036; 85025

== ENCOUNTER 2023-02-12 09:06 | Outpatient (CLI) | payer OTHER, SELFPAY ==
[2023-02-16 00:17] LABS: CA-125 12 U/mL (<35)
[2023-02-17 07:36] LABS: FSH 58.5 mIU/mL (***)
== END 2023-02-12 09:07 | disposition home or self-care (01) ==
PROVIDERS: PCP Family Medicine; Visit Provider Obstetrics & Gynecology
DX: N92.0 Excessive and frequent menstruation with regular cycle (principal)
CPT/HCPCS: 36415; 83001; 86304

== ENCOUNTER 2023-02-18 15:51 | Outpatient (CLI) | payer OTHER, SELFPAY ==
--- NOTE | ~2023-02-18 | US_ITS ---
EXAMINATION: US pelvic complete w TV DATE: 02/18/2023 16:43 INDICATION: Postmenopausal bleeding. TECHNIQUE: Multiple transabdominal and transvaginal sonographic images of the pelvis were obtained. COMPARISON: Ultrasound pelvis 08/10/2021 FINDINGS: TRANSABDOMINAL ULTRASOUND: The uterus measures 9.9 x 3.6 x 4.2 cm. There is no free fluid in the pelvis. TRANSVAGINAL ULTRASOUND: The endometrial complex measures 1 mm in thickness. The ovaries are not visualized. IMPRESSION: 1. Normal endometrial complex. Reviewed, dictated and finalized at location A.
== END 2023-02-18 15:52 | disposition home or self-care (01) ==
PROVIDERS: PCP Family Medicine; Visit Provider Obstetrics & Gynecology
DX: N95.0 Postmenopausal bleeding (principal)
CPT/HCPCS: 76830; 76856

== ENCOUNTER 2023-04-06 08:15 | Outpatient (CLI) | payer OTHER, SELFPAY ==
[2023-04-06 09:41] LABS: Thyroid Stimulating Hormone 0.283 uIU/mL (0.465-4.680)
[2023-04-06 09:47] LABS: Free T4 Free Thyroxine 1.77 ng/mL (0.78-2.19)
[2023-04-09 10:29] LABS: Triiodothyronine T3 Free 3.9 pg/mL (2.3-4.2)
== END 2023-04-06 08:16 | disposition home or self-care (01) ==
LOC: ANHLAB 08:16
PROVIDERS: PCP Family Medicine; Visit Provider Physician Assistant
DX: E03.9 Hypothyroidism, unspecified (principal)
CPT/HCPCS: 36415; 84439; 84443; 84481

== ENCOUNTER 2023-05-19 16:18 | Outpatient (CLI) | payer OTHER, SELFPAY ==
--- NOTE | ~2023-05-19 | MM_ITS ---
EXAMINATION: MM screening nelida BI w edilson HISTORY: Screening TECHNIQUE: Craniocaudal and mediolateral oblique 3-D tomosynthesis images were obtained and synthetic 2-D images were generated. CAD analysis was submitted and interpreted. COMPARISON: Comparison to multiple prior studies sequentially, with oldest reviewed study dated 07/2013. BREAST PARENCHYMAL COMPOSITION: There are scattered areas of fibroglandular density. FINDINGS: There is no evidence of suspicious mass, calcification, or architectural distortion to sugg est malignancy in either breast. There has been no suspicious interval change. IMPRESSION: 1. No mammographic evidence of malignancy. 2. Recommend routine screening mammography in one year. BI-RADS Category 1: Negative Reviewed, dictated and finalized at location A. P[employer]ER CAR[employer]ER
== END 2023-05-19 16:19 | disposition home or self-care (01) ==
PROVIDERS: PCP Family Medicine; Visit Provider Obstetrics & Gynecology
DX: Z12.31 Encounter for screening mammogram for malignant neoplasm of breast (principal)
CPT/HCPCS: 77063; 77067

== ENCOUNTER 2023-06-11 08:14 | Outpatient (CLI) | payer OTHER, SELFPAY ==
[2023-06-11 09:22] LABS: Alanine Aminotransferase 47 U/L (6-35); Albumin Level 4.4 g/dL (3.5-5.1); Alkaline Phosphatase 114 U/L (38-126); Anion Gap 12 mmol/L (8-16); Aspartate Amino Transferase 40 U/L (14-36); Bilirubin,Total 0.5 mg/dL (0.2-1.3); Blood Urea Nitrogen 11 mg/dL (7-17); Calcium 9.7 mg/dL (8.4-10.2); Carbon Dioxide 23 mmol/L (22-30); Chloride 102 mmol/L (98-107); Cholesterol 224 mg/dL (0-200); Estimated Glomerular Filt Rate > 60; Glucose 131 mg/dL (65-110); HDL Direct 53 mg/dL; Potassium 3.5 mmol/L (3.4-5.0); Sodium 137 mmol/L (137-145); Triglycerides 96 mg/dL (<150)
[2023-06-11 09:33] LABS: LDL Cholesterol Direct 121 mg/dL
[2023-06-11 09:39] LABS: Hemoglobin A1C 5.9 % (<5.7)
[2023-06-11 09:52] LABS: Thyroid Stimulating Hormone < 0.015 uIU/mL (0.465-4.680)
[2023-06-11 09:53] LABS: Free T4 Free Thyroxine 2.31 ng/mL (0.78-2.19)
[2023-06-14 21:50] LABS: Triiodothyronine T3 Free 3.9 pg/mL (2.3-4.2)
== END 2023-06-11 08:15 | disposition home or self-care (01) ==
LOC: ANHLAB 08:15
PROVIDERS: PCP Family Medicine; Visit Provider Physician Assistant
DX: E11.9 Type 2 diabetes mellitus without complications (principal); E78.2 Mixed hyperlipidemia; E03.9 Hypothyroidism, unspecified; E07.9 Disorder of thyroid, unspecified
CPT/HCPCS: 36415; 80053; 80061; 83036; 84439; 84443; 84481

== ENCOUNTER 2023-08-03 07:41 | Outpatient (CLI) | payer OTHER, SELFPAY ==
[2023-08-03 08:16] LABS: Alanine Aminotransferase 32 U/L (6-35); Albumin Level 3.9 g/dL (3.5-5.1); Alkaline Phosphatase 96 U/L (38-126); Anion Gap 8 mmol/L (8-16); Aspartate Amino Transferase 30 U/L (14-36); Bilirubin,Total 0.4 mg/dL (0.2-1.3); Blood Urea Nitrogen 17 mg/dL (7-17); Calcium 9.4 mg/dL (8.4-10.2); Carbon Dioxide 28 mmol/L (22-30); Chloride 103 mmol/L (98-107); Estimated Glomerular Filt Rate > 60; Glucose 119 mg/dL (65-110); Potassium 3.6 mmol/L (3.4-5.0); Sodium 139 mmol/L (137-145)
[2023-08-06 07:41] LABS: Triiodothyronine T3 Free 2.8 pg/mL (2.3-4.2)
== END 2023-08-03 07:42 | disposition home or self-care (01) ==
LOC: ANHLAB 07:42
PROVIDERS: PCP Family Medicine; Visit Provider Physician Assistant
DX: E07.9 Disorder of thyroid, unspecified (principal); E03.9 Hypothyroidism, unspecified; I10 Essential (primary) hypertension
CPT/HCPCS: 36415; 80053; 84439; 84443; 84481

== ENCOUNTER 2023-11-23 10:37 | Outpatient (CLI) | payer OTHER, SELFPAY ==
--- NOTE | 2023-11-23 11:30 | NEURO_ITS ---
Impression: # Complains of numbness of hands. # Bilateral moderate Carpal Tunnel Syndrome. # No ulnar neuropathy. # Normal needle/EMG exam. Nerve Conduction Studies Anti Sensory Summary Table Stim Site NR Peak (ms) P-T Amp (?V) Site1 Site2 Delta-P (ms) Dist (cm) Joaquín (m/s) Left Median Anti Sensory (2-3nd Digit) Wrist 4.7 16.2 Wrist 2-3nd Digit 4.7 14.0 30 Wrist 5.2 12.5 Wrist 2-3nd Digit 4.7 14.0 30 Right Median Anti Sensory (2-3nd Digit) Wrist 5.7 36.1 Wrist 2-3nd Digit 5.7 14.0 25 Wrist 6.7 38.3 Wrist 2-3nd Digit 5.7 14.0 25 Left Radial Anti Sensory (Base 1st Digit) Wrist 2.0 38.2 Wrist Base 1st Digit 2.0 0.0 Right Radial Anti Sensory (Base 1st Digit) Wrist 2.1 36.0 Wrist Base 1st Digit 2.1 0.0 Left Ulnar Anti Sensory (5th Digit) Wrist 2.6 40.9 Wrist 5th Digit 2.6 14.0 54 Right Ulnar Anti Sensory (5th Digit) Wrist 2.5 78.0 Wrist 5th Digit 2.5 14.0 56 Motor Summary Table Stim Site NR Onset (ms) O-P Amp (mV) Site1 Site2 Delta-0 (ms) Dist (cm) Joaquín (m/s) Left Median Motor (Abd Poll Brev) Wrist 5.7 1.6 Elbow Wrist 4.7 26.0 55 Elbow 10.4 0.7 Right Median Motor (Abd Poll Brev) Wrist 4.8 3.5 Elbow Wrist 4.5 26.0 58 Elbow 9.3 4.6 Left Ulnar Motor (Abd Dig Minimi) Wrist 2.7 11.9 A Elbow Wrist 5.0 29.0 58 A Elbow 7.7 5.9 Right Ulnar Motor (Abd Dig Minimi) Wrist 2.1 9.5 A Elbow Wrist 4.9 28.0 57 A Elbow 7.0 7.4 F Wave Studies NR F-Lat (ms) L-R F-Lat (ms) Left Median (Mrkrs) (Abd Poll Brev) 27.58 0.00 Right Median (Mrkrs) (Abd Poll Brev) 27.58 0.00 Left Ulnar (Mrkrs) (Abd Dig Min) 26.29 0.27 Right Ulnar (Mrkrs) (Abd Dig Min) 26.56 0.27 EMG Side Muscle Nerve Root Ins Act Fibs Amp Dur Recrt Comment Right 1stDorInt Ulnar C8-T1 Nml Nml Nml Nml Nml Right Ext Indicis Radial (Post Int) C7-8 Nml Nml Nml Nml Nml Right Ext Digitorum Radial (Post Int) C7-8 Nml Nml Nml Nml Nml Right BrachioRad Radial C5-6 Nml Nml Nml Nml Nml Right PronatorTeres Median C6-7 Nml Nml Nml Nml Nml Right Abd Poll Brev Median C8-T1 Nml Nml Nml Nml Nml Right ABD Dig Min Ulnar C8-T1 Nml Nml Nml Nml Nml Left 1stDorInt Ulnar C8-T1 Nml Nml Nml Nml Nml Left Ext Indicis Radial (Post Int) C7-8 Nml Nml Nml Nml Nml Left Ext Digitorum Radial (Post Int) C7-8 Nml Nml Nml Nml Nml Left BrachioRad Radial C5-6 Nml Nml Nml Nml Nml Left PronatorTeres Median C6-7 Nml Nml Nml Nml Nml Left Abd Poll Brev Median C8-T1 Nml Nml Nml Nml Nml Left ABD Dig Min Ulnar C8-T1 Nml Nml Nml Nml Nml MTDD
== END 2023-11-23 10:38 | disposition home or self-care (01) ==
LOC: ANHNEURO 10:39
PROVIDERS: PCP Family Medicine; Visit Provider Plastic Surgery
DX: G56.03 Carpal tunnel syndrome, bilateral upper limbs (principal)
CPT/HCPCS: 95886; 95911

== ENCOUNTER 2023-12-07 07:29 | Outpatient (CLI) | payer OTHER, SELFPAY ==
[2023-12-07 08:32] LABS: Anion Gap 4 mmol/L (4-12); Blood Urea Nitrogen 19 mg/dL (7-17); Calcium 9.3 mg/dL (8.4-10.2); Carbon Dioxide 29 mmol/L (22-30); Chloride 105 mmol/L (98-107); Estimated Glomerular Filt Rate > 60; Glucose 122 mg/dL (65-110); Potassium 3.8 mmol/L (3.4-5.0); Sodium 138 mmol/L (137-145)
== END 2023-12-07 07:30 | disposition home or self-care (01) ==
LOC: ANHLAB 07:31
PROVIDERS: PCP Family Medicine; Visit Provider Anesthesiology
DX: Z01.818 Encounter for other preprocedural examination (principal); E11.9 Type 2 diabetes mellitus without complications
CPT/HCPCS: 36415; 80048

== ENCOUNTER 2023-12-14 00:19 | Day surgery (SDC) | payer OTHER, SELFPAY ==
[2023-12-06 10:11] VITALS: BMI 43.4
--- NOTE | 2023-12-06 10:19 | PC.NURSE ---
Report to the Outpatient Waiting Room, entrance under the green pavilion located off [facility], at time _1000_ on date _[id number]_. Planned Procedure Time: _1200_. Time changes happen often and if your time is changed the preop area will call you the afternoon before. - You and your visitor will be asked to self-screen and do not enter if you have any COVID symptoms. - A mask is optional within the hospital at this time. May have clear liquids (water, carbonated beverages, clear teas, apple juice) until 4am with a maximum of 20 ounces. Nothing to drink after 4am. - No food from midnight until time of surgery Take the following medications with a SIP of water the morning of surgery: ___Levothyroxine and Liothyronine DO NOT STOP ANY OF YOUR OTHER PRESCRIPTION MEDICATIONS PRIOR TO SURGERY ?EXCEPT THE FOLLOWING Medications to discontinue per physician ____Fish oil Date to take last fxam___[id number] Please no make-up, nail northern irish, hairspray, perfume, deodorant, or body powder the day of surgery. No jewelry (including any body piercings) or valuables the day of surgery, leave them at home. Please take a shower or bath the night before, or the morning of, surgery with an antibacterial soap. Wear comfortable, loose fitting clothing. - Jewelry must be removed prior to entering the operating room. Rings and piercings that are not removed may be cut off. - The hospital will not accept responsibility for valuables. - Please leave all valuables, including medications, at home the day of surgery. If you are going home after surgery, a licensed driver supervisor must drive you home. - NO public transportation without another adult if you receive anesthesia. - We recommend that an adult stay with you for 24 hours following discharge. - We also recommend that you do not drive, make important decision, drink alcoholic beverages, or take any drugs that were not prescribed by your health care provider for at least 24 hours after your discharge time. Follow any additional instructions given to you from your surgeon. If you or anyone in your household have experienced Covid symptoms in the past week, please notify your surgeon or the nurse liaison at the phone number below for possible testing. Telephone instructions given to _Tristan__and asked if any additional questions and then verbalized understanding. Patient advised to call surgeon office or pre surgery nurse liaison [phone] if any additional questions.
--- NOTE | 2023-12-14 07:18 | P.OP_ITS ---
Procedure Note - Detailed Date of Procedure 12/14/23 Pre-op Diagnosis bilateral carpal tunnel syndrome Post-op Diagnosis Same Procedure Performed right ectr and left carpal tunnel steroid injection Surgeon Jakub Bains MD Aviation Neuropsychologist tyler herring pa-c Anesthesia MAC Description of Procedure INFORMED CONSENT: The patient was seen and examined and marked in the pre-op area.? The patient signed the consent form. PROCEDURE IN DETAIL:The patient taken back to OR on the stretcher in supine position. Time out performed with anesthesia, surgeon and staff agreeing on patient's name site and surgery to be performed SCDs were placed on the lower extremities and inflated. A tourniquet was placed on {right} upper extremity and antibiotics given IV After anesthesia administered sedation I injected {4}cc 1%lido with epi and 0.5% marcaine plain at the operative site The?{right upper extremity}?was prepped and draped in sterile fashion the??{right upper extremity} was? exsanguinated with Esmarch bandage and tourniquet inflated to 250mmHg I made a transverse incision in the {right} volar distal wrist crease through skin and dermis with 15 blade scalpel.? Littler scissors spread down to antebrachial fascia. A small incision was made in antebrachial fascia allowing access to Carpal tunnel. I proceeded with sequential dilation staying in line with the ring finger and hugging the hook of the hamate.? I then used the synovial elevator to free any adhesions from the underside of the transverse carpal ligament. Next I was able to insert the Microaire endoscopic carpal tunnel device with direct visualization of the transverse fibers on the monitor and proceeded with complete segmental retrograde release of the ligament in its entirety.? I irrigated with normal saline and closed with 4-0 monocryl for dermis and subcuticular closure. A dressing of Dermabond, 4x4, shital, and a volar splint was applied for patient safety, security, and comfort and secured with an dylan bandage after the tourniquet was let down noting the hand was warm and well perfused. Next 0.3cc 1%lidocaine plain and 0.7cc Betamethasone 6mg/ml injected carpal tunnel under sterile conditions.I The patient was then awaken from anesthesia and transferred to the recovery room in stable condition.? Complications - none EBL- 0cc Disposition - home in stable conditions tyler herring pa-c was essential for positioning, retraction, closure and dressing placement [facility] Billing Surgery - Charge Forward: Surgery Billing ([id number] tyler)
--- NOTE | 2023-12-14 07:18 | PM.HPGS ---
History of Present Illness History of Present Illness Chief complaint: right carpal tunnel syndrome Narrative: Patient seen and examined in pre-operative holding area. No interval change in medical history or symptoms. Patient recalls previous discussion of benefits and alternatives to procedure. Continues to desire to proceed with right endoscopic possible open carpal tunnel release and left carpal tunnel steroid injection. Reviewed procedure, post-op expectations and risks including but not limited to bleeding, infection, injury to tendon/nerve/vessel, decreased hand function, stiffness, RSD, no change or worsening of symptoms. I discussed the possible use of assistants and their participation in the case. Patient stated understanding and signed the consent form wishing to proceed. Review of Systems Review of Systems: All systems reviewed & are unremarkable except as noted in HPI and below PMFSH Past Medical History Medical History Arthritis Asthma delivery delivered Essential (primary) hypertension History of gastroesophageal reflux (GERD) Hypothyroidism, unspecified Mixed hyperlipidemia Narcolepsy without cataplexy Type 2 diabetes mellitus without complication, without long-term current use of insulin Surgical History Surgical History H/O section X3 History of cholecystectomy 2009 History of knee surgery 2016, Right knee for Torn meniscus History of laparoscopy 1993 Family History Family History Mother Family history of malignant neoplasm of ovary, Onset Age: 55 Hypertension Diabetes mellitus Father Hypertension Heart disease Sibling Asthma Anxiety and depression Thyroid disorder Grandparent Lung cancer Diabetes mellitus Social History Social History Social History: Smoking packs per day: 0.5 Smoking cigarettes per day: 10.0 Years smoked: 25 Smoking pack-years: 12.50 Smoking status: Former smoker Second hand tobacco smoke exposure: Yes Smoking end date: 12/05/20 Alcohol intake: current Alcohol use details: Occasionally Substance use: never Substance use type: marijuana Other substance usage details: Maybe once a month Lack of Transportation: No Lack of Food: Never True Current Housing: I Have Housing Concerned About Future Housing: No Difficulty Paying Gas/Electric Bills: No Difficulty Paying for Meds: No Currently Unemployed: No Education: Associate Degree Difficulty w/ Childcare or Family Care: No Living arrangements: with family Occupation/Education: occupation Gender identity (if verbalized by the patient): Female Sexual Orientation (if Verbalized by the Patient): Straight or Heterosexual Spiritual care concerns: No Agree to blood products: Yes Meds Home Medications and Allergies Home Medications Medication Instructions Recorded Confirmed Type albuterol sulfate 90 mcg/actuation 1 puff inhalation Q4H PRN 01/15/22 12/06/23 Rx aerosol inhaler (ProAir HFA) Shortness Of Breath #8.5 grams meloxicam 15 mg tablet See Rx Instructions .Route 04/13/23 12/06/23 Rx .COMPLEX #90 tabs liothyronine 5 mcg tablet See Rx Instructions .Route 06/15/23 12/06/23 Rx .COMPLEX #30 tabs empagliflozin 10 mg tablet See Rx Instructions .Route 08/15/23 12/06/23 Rx (Jardiance) .COMPLEX #90 tabs metoprolol tartrate 50 See Rx Instructions .Route 08/15/23 12/06/23 Rx mg-hydrochlorothiazide 25 mg tablet .COMPLEX #90 tabs levothyroxine 137 mcg tablet See Rx Instructions .Route 09/10/23 12/06/23 Rx .COMPLEX #90 tabs modafinil 200 mg tablet 200 mg PO DAILY #90 tabs 09/27/23 12/06/23 Rx omeprazole 40 mg capsule,delayed See Rx Instructions .Route 09/27/23 12/06/23 Rx release .COMPLEX #90 caps
--- NOTE | 2023-12-14 10:20 | WPDANESEPPF ---
Anes - Initial Pre Proc Eval Procedure: Operation Date: 12/14/23 12:45 Proposed Procedures p Right Endoscopic Carpal Tunnel Release, Possible Open, Injection Left Carpal Tunnnel - Jakub Bains MD Date/Time: 12/14/23 10:20 Surgeon: Jakub Bains MD Pre Op Diagnosis: right carpal tunnel syndrome Patient Data Age: 52 Gender: F Height: 1.65 m Weight: 118.6 kg Allergies Allergy/AdvReac Type Severity Reaction Status Date / Time metformin AdvReac Mild stomach Verified 12/06/23 10:08 cramps quinapril AdvReac Mild Hives Verified 12/06/23 10:08 Home Medications Medication Instructions Recorded Confirmed Type albuterol sulfate 90 mcg/actuation 1 puff inhalation Q4H PRN 01/15/22 12/06/23 Rx aerosol inhaler (ProAir HFA) Shortness Of Breath #8.5 grams meloxicam 15 mg tablet See Rx Instructions .Route 04/13/23 12/06/23 Rx .COMPLEX #90 tabs liothyronine 5 mcg tablet See Rx Instructions .Route 06/15/23 12/06/23 Rx .COMPLEX #30 tabs empagliflozin 10 mg tablet See Rx Instructions .Route 08/15/23 12/06/23 Rx (Jardiance) .COMPLEX #90 tabs metoprolol tartrate 50 See Rx Instructions .Route 08/15/23 12/06/23 Rx mg-hydrochlorothiazide 25 mg tablet .COMPLEX #90 tabs levothyroxine 137 mcg tablet See Rx Instructions .Route 09/10/23 12/06/23 Rx .COMPLEX #90 tabs modafinil 200 mg tablet 200 mg PO DAILY #90 tabs 09/27/23 12/06/23 Rx omeprazole 40 mg capsule,delayed See Rx Instructions .Route 09/27/23 12/06/23 Rx release .COMPLEX #90 caps tirzepatide 10 mg/0.5 mL 10 mg (0.5 mL) subcut WEEKLY #2 mL 10/28/23 12/06/23 Rx subcutaneous pen injector (Anup) azelastine 137 mcg (0.1 %) nasal 137 mcg intranasal Q12H PRN 12/06/23 12/06/23 History spray aerosol Allergy Symptoms fluticasone propionate 50 1 spray intranasal DAILY PRN 12/06/23 12/06/23 History mcg/actuation nasal Allergy Symptoms spray,suspension (Flonase Allergy Relief) loratadine 10 mg tablet (Claritin) 10 mg PO DAILY PRN Allergy Symptoms 12/06/23 12/06/23 History omega 5-gxn-ayu-fish oil 1,200 mg 1 cap PO DAILY 12/06/23 12/06/23 History (144 mg-216 mg) capsule (Fish Oil) tramadol 50 mg tablet 50 mg PO Q6H PRN pain #12 tabs 12/14/23 Rx Patient hx anesthesia problems: none Family hx anesthesia problems: none Results Review: All pre-operative results and documents have been reviewed as part of the pre-operative evaluation. [facility] Past Medical History Medical History Arthritis Asthma delivery delivered Essential (primary) hypertension History of gastroesophageal reflux (GERD) Hypothyroidism, unspecified Mixed hyperlipidemia Narcolepsy without cataplexy Type 2 diabetes mellitus without complication, without long-term current use of insulin Surgical History Surgical History H/O section X3 History of cholecystectomy 2009 History of knee surgery 2015, Right knee for Torn meniscus History of laparoscopy 1993 Family History Family History Mother Family history of malignant neoplasm of ovary, Onset Age: 55 Hypertension Diabetes mellitus Father Hypertension Heart disease Sibling Asthma Anxiety and depression Thyroid disorder Grandparent Lung cancer Diabetes mellitus Social History Social History Social History: Smoking packs per day: 0.5 Smoking cigarettes per day: 10.0 Years smoked: 25 Smoking pack-years: 12.50 Smoking status: Former smoker Second hand tobacco smoke exposure: Yes Smoking end date: 12/05/20 Alcohol intake: current Alcohol use details: Occasionally Substance use: never Substance use type: marijuana Other substance usage details: Maybe once a month Lack of Transportation: No Lack of Fo
[2023-12-14 10:23] LABS: Glucose Point of Care 114 mg/dl (65-105)
[2023-12-14 10:41] VITALS: BP 123/74; PULSE 73; RESP 16; TEMP 36.6; O2SAT 97
[2023-12-14] MEDS: ceFAZolin 2 GM/D5W 50 ML 2 GM/50 ML BAG IVPB (11:11)
[2023-12-14] MEDS: BETAMETHASONE SODIUM PHOSPHATE PF INJ 6 MG/ML VIAL 0.7 MG INFILTRATE (11:15)
[2023-12-14] MEDS: LIDO 1%/EPINEPHRINE 1:100,000 50 ML VIAL 10 ML INFILTRATE (11:19)
[2023-12-14 11:30] VITALS: BP 94/53; PULSE 69; RESP 12; O2SAT 98
[2023-12-14] MEDS: LACTATED RINGERS 1,000 ML 30 ML IV CONT (11:30)
[2023-12-14 11:58] LABS: Glucose Point of Care 107 mg/dl (65-105)
[2023-12-14 12:00] VITALS: BP 104/55; PULSE 68; RESP 16; O2SAT 96
[2023-12-14 12:19] VITALS: BP 112/54; PULSE 67; RESP 16
== END 2023-12-14 12:26 | disposition home or self-care (01) ==
PROVIDERS: PCP Family Medicine; Visit Provider Plastic Surgery
PROC: 01N54ZZ Release Median Nerve, Percutaneous Endoscopic Approach (ICD-10-PCS; CPT 29848; principal; 2023-12-14 12:45)
DX: G56.03 Carpal tunnel syndrome, bilateral upper limbs (principal); I10 Essential (primary) hypertension; E78.2 Mixed hyperlipidemia; E11.9 Type 2 diabetes mellitus without complications; E03.9 Hypothyroidism, unspecified; J45.909 Unspecified asthma, uncomplicated; G47.419 Narcolepsy without cataplexy; Z87.891 Personal history of nicotine dependence; F12.90 Cannabis use, unspecified, uncomplicated; Z79.51 Long term (current) use of inhaled steroids; Z79.84 Long term (current) use of oral hypoglycemic drugs; Z79.85 Long-term (current) use of injectable non-insulin antidiabetic drugs; E66.01 Morbid (severe) obesity due to excess calories; Z68.41 Body mass index [BMI] 40.0-44.9, adult
CPT/HCPCS: 29848; 20526; 82948; J0690; J1100; J2405; J2704; J3010; J7120

== ENCOUNTER 2023-12-24 07:03 | Outpatient (CLI) | payer OTHER, SELFPAY ==
[2023-12-24 08:40] LABS: Basophils Absolute Auto 0.1 K/mm3 (0.0-0.1); Basophils Percent Auto 0.9 % (0.2-1.2); Eosinophils Absolute Auto 0.2 K/mm3 (0-0.3); Hematocrit 45.2 % (37.0-47.0); Hemoglobin 14.1 g/dL (12.0-15.0); Immature Granulocyte Absolute 0.02 K/mm3 (0.00-0.031); Immature Granulocyte Percent A 0.3 % (0-0.5); Lymphocytes Absolute Auto 2.38 K/mm3 (0.9-3.2); Lymphocytes Percent Auto 32.2 % (18.3-44.2); Mean Corpuscular HGB Conc 31.2 g/dl (32-36); Mean Corpuscular Hemoglobin 27.8 pg (26-34); Mean Corpuscular Volume 89.2 fl (80-100); Mean Platelet Volume 10.5 fl (7.4-10.4); Monocytes Absolute Auto 0.5 K/mm3 (0.1-0.6); Monocytes Percent Auto 7.3 % (2.6-8.5); Neutrophils Absolute Auto 4.2 K/mm3 (1.3-6.7); Neutrophils Percent Auto 56.3 % (45.5-73.1); Platelet Count Result 257 k/mm3 (150-375); Red Blood Count 5.07 M/mm3 (4.2-5.4); Red Cell Distribution Width 13.9 % (11.5-14.5); White Blood Count 7.4 K/mm3 (4.5-10.0)
[2023-12-24 08:52] LABS: Cholesterol 190 mg/dL (0-200); HDL Direct 52 mg/dL; Triglycerides 123 mg/dL (<150)
[2023-12-24 09:03] LABS: LDL Cholesterol Direct 111 mg/dL
[2023-12-24 09:05] LABS: Creatinine Urine 73.2 mg/dL
[2023-12-24 09:13] LABS: MALB Creatinine Ratio < 8.2 mg/g (0-30); Microalbumin Urine Random < 6.0 mg/L (0-16.7)
[2023-12-24 09:34] LABS: Hemoglobin A1C 5.9 % (<5.7)
== END 2023-12-24 07:04 | disposition home or self-care (01) ==
LOC: ANHLAB 07:04
PROVIDERS: PCP Family Medicine; Visit Provider Family Medicine
DX: E03.9 Hypothyroidism, unspecified (principal); I10 Essential (primary) hypertension; E11.9 Type 2 diabetes mellitus without complications; E78.2 Mixed hyperlipidemia
CPT/HCPCS: 36415; 80061; 82043; 83036; 84443; 85025

== ENCOUNTER 2023-12-28 07:12 | Outpatient (CLI) | payer OTHER, SELFPAY ==
--- NOTE | ~2023-12-28 | XR_ITS ---
XR knee LT 3V Ordering provider: Isa Rodriguez PA-C History: . M25.561 - Pain in left right knee . Comparison: September 27, 2013 FINDINGS: BONES: No acute fracture or dislocation. JOINT SPACES: Narrowing of the medial compartment. Marginal osteophytes seen. SOFT TISSUES: Normal. IMPRESSION: No acute osseous abnormality left knee. Osteoarthritic changes of the left knee. Reviewed, dictated and finalized at location A.
--- NOTE | ~2023-12-28 | XR_ITS ---
EXAMINATION: XR knee RT 3V DATE: 12/28/2023 07:45 INDICATION: Right knee pain. TECHNIQUE: 3 views of right knee including standing views were obtained. COMPARISON: Right knee radiographs 10/12/2016 FINDINGS: There is reticulation the knee. No fracture. There is severe osteoarthritis of medial yannick rtment, moderate osteoarthritis of patellofemoral compartment, and mild osteoarthritis of lateral com partment. No knee joint effusion. IMPRESSION: 1. Severe right knee osteoarthritis. Reviewed, dictated and finalized at location A.
== END 2023-12-28 07:13 ==
PROVIDERS: PCP Orthopaedic Surgery; Visit Provider Physician Assistant
DX: M17.0 Bilateral primary osteoarthritis of knee (principal)
CPT/HCPCS: 73562

== ENCOUNTER 2024-05-29 14:20 | Outpatient (CLI) | payer OTHER, SELFPAY ==
[2024-05-29 15:36] LABS: Alanine Aminotransferase 42 U/L (6-35); Albumin Level 4.2 g/dL (3.5-5.1); Alkaline Phosphatase 108 U/L (38-126); Anion Gap 7 mmol/L (4-12); Aspartate Amino Transferase 32 U/L (14-36); Bilirubin,Total 0.4 mg/dL (0.2-1.3); Blood Urea Nitrogen 21 mg/dL (7-17); Calcium 9.4 mg/dL (8.4-10.2); Carbon Dioxide 27 mmol/L (22-30); Chloride 102 mmol/L (98-107); Estimated Glomerular Filt Rate > 60; Glucose 136 mg/dL (65-110); Potassium 3.5 mmol/L (3.4-5.0); Sodium 136 mmol/L (137-145)
[2024-05-29 16:03] LABS: Free T4 Free Thyroxine 1.13 ng/mL (0.78-2.19)
[2024-05-29 17:12] LABS: Hemoglobin A1C 6.4 % (<5.7)
[2024-05-31 02:09] LABS: T3 Free 2.9 pg/mL (2.3-4.2)
== END 2024-05-29 14:21 | disposition home or self-care (01) ==
LOC: ANHLAB 14:21
PROVIDERS: PCP Family Medicine; Visit Provider Student in an Organized Health Care Education/Training Program
DX: E03.9 Hypothyroidism, unspecified (principal); E11.9 Type 2 diabetes mellitus without complications
CPT/HCPCS: 36415; 80053; 83036; 84439; 84443; 84480

== ENCOUNTER 2024-09-01 08:51 | Outpatient (CLI) | payer OTHER, SELFPAY ==
--- OUTSIDE RECORDS SUMMARY | 2024-09-01 08:53 | XMS_ITS | Clinical Summary ---
Author Organization 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 Name Role Phone Unavailable Primary Care Provider Unavailabl e Social History Tobacco Use Types Packs/Day Years Used Date Smoking Tobacco: Never Assessed Comments Unknown Sex and Gender Information Value Date Recorded Sex Assigned at Not on file Legal Sex Female 4:45 PM CDT Gender Identity Not on file Sexual Orientation Not on file Plan of Treatment Health Maintenance Due Date Last Done Comments Cervical Cancer Screening Pa p Smear (Age 30 to 64) Every 3 Years 1969 Colorectal Cancer Screening Colonoscopy (10 Years) 1969 Annual Physical 1972 Hepatitis C 12/18/1987 DTaP, Tdap and Td Vaccines ( 1 - Tdap) 1988 Hepatitis B Vaccines (1 of 3 - 19+ 3-dose series) 1988 Cervical Cancer Screening Pa p with HPV Testing (Age 30 to 64) Every 5 Years 12/18/1999 Cervical Cancer Screening with HPV 12/18/1999 Mammogram Screening 2009 Zoster Vaccines (1 of 2) 12/18/2019 COVID-19 Vaccine (2023-2 5 season) 2024 Influenza Adult (#1) 2024 Meningococcal B Vaccine Aged Out No l onger eligible based on patient's age to complete this topic Meningococcal Vaccine Aged Out No dick yudi eligible based on patient's age to complete this topic Pneumococcal Vaccine: Pediat rics (0 to 5 Years) and At-Risk Patients (6 to 64 Years) Aged Out No longer eligible b ased on patient's age to complete this topic RSV Immunizations Under 20 Months Aged Out No longer eligible based on patient's age to complete this topic
[2024-09-01 09:17] LABS: Alanine Aminotransferase 35 U/L (6-35); Alkaline Phosphatase 89 U/L (38-126); Anion Gap 12 mmol/L (4-12); Aspartate Amino Transferase 27 U/L (14-36); Bilirubin,Total 0.5 mg/dL (0.2-1.3); Blood Urea Nitrogen 24 mg/dL (7-17); Calcium 9.6 mg/dL (8.4-10.2); Carbon Dioxide 27 mmol/L (22-30); Chloride 101 mmol/L (98-107); Estimated Glomerular Filt Rate > 60; Glucose 134 mg/dL (65-110); Sodium 140 mmol/L (137-145)
[2024-09-01 09:42] LABS: Hemoglobin A1C 6.2 % (<5.7)
== END 2024-09-01 08:52 | disposition home or self-care (01) ==
LOC: ANHLAB 08:51
PROVIDERS: PCP Family Medicine; Visit Provider Student in an Organized Health Care Education/Training Program
DX: E11.9 Type 2 diabetes mellitus without complications (principal)
CPT/HCPCS: 36415; 80053; 83036

== ENCOUNTER 2025-02-07 13:47 | Outpatient (CLI) | payer OTHER, SELFPAY ==
--- NOTE | ~2025-02-07 | MM_ITS ---
EXAMINATION: MM screening [facility] BI w edilson HISTORY: Screening TECHNIQUE: Craniocaudal and mediolateral oblique 3-D tomosynthesis images were obtained and synthetic 2-D images were generated. CAD analysis was submitted and interpreted. COMPARISON: Comparison to multiple prior studies sequentially, with oldest reviewed study dated 02/2016. BREAST PARENCHYMAL COMPOSITION: Not Dense: The breasts are almost entirely fatty. FINDINGS: There is no evidence of suspicious mass, calcification, or architectural distortion to sugg est malignancy in either breast. There has been no suspicious interval change. IMPRESSION: 1. No mammographic evidence of malignancy. 2. Recommend routine screening mammography in one year. BI-RADS Category 1: Negative Reviewed, dictated and finalized at location B.
--- OUTSIDE RECORDS SUMMARY | 2025-02-07 13:53 | XMS_ITS | Clinical Summary ---
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
== END 2025-02-07 13:48 | disposition home or self-care (01) ==
LOC: ANHIMG 13:49
PROVIDERS: PCP Family Medicine; Visit Provider Student in an Organized Health Care Education/Training Program
DX: Z12.31 Encounter for screening mammogram for malignant neoplasm of breast (principal)
CPT/HCPCS: 77063; 77067

== ENCOUNTER 2025-02-16 07:11 | Outpatient (CLI) | payer OTHER, SELFPAY ==
--- OUTSIDE RECORDS SUMMARY | 2025-02-16 07:14 | XMS_ITS | Clinical Summary ---
Author Organization [facility] Address [address] [place] [id number] Care Team Providers Care Telephone Quotation Clerk Name Role Phone Unavailable Primary Care Provider [...]
[2025-02-16 07:41] LABS: Hematocrit 45.2 % (37.0-47.0); Hemoglobin 14.4 g/dL (12.0-15.0); Immature Granulocyte Percent A 0.4 % (0-0.5); Lymphocytes Absolute Auto 2.05 K/mm3 (0.9-3.2); Mean Corpuscular HGB Conc 31.9 g/dl (32-36); Mean Corpuscular Hemoglobin 28.0 pg (26-34); Mean Corpuscular Volume 87.8 fl (80-100); Nucleated Red Blood Cells Absolute Auto 0.000 K/mm3 (0.0-0.012); Nucleated Red Blood Cells Perc 0.0 % (0.0-0.2); Platelet Count Result 304 k/mm3 (150-375); Red Blood Count 5.15 M/mm3 (4.2-5.4); White Blood Count 9.1 K/mm3 (4.5-10.0)
[2025-02-16 07:52] LABS: Hemoglobin A1C 6.1 % (<5.7)
[2025-02-16 08:27] LABS: Free T4 Free Thyroxine 1.05 ng/dL (0.78-2.19)
[2025-02-16 08:38] LABS: Alanine Aminotransferase 33 U/L (6-35); Albumin Level 3.9 g/dL (3.5-5.1); Alkaline Phosphatase 100 U/L (38-126); Anion Gap 7 mmol/L (4-12); Aspartate Amino Transferase 27 U/L (14-36); Bilirubin,Total 0.3 mg/dL (0.2-1.3); Blood Urea Nitrogen 16 mg/dL (7-17); Calcium 9.8 mg/dL (8.4-10.2); Carbon Dioxide 27 mmol/L (22-30); Chloride 102 mmol/L (98-107); Cholesterol 228 mg/dL (0-200); Estimated Glomerular Filt Rate > 60; Glucose 136 mg/dL (65-110); HDL Direct 64 mg/dL; Potassium 4.0 mmol/L (3.4-5.0); Sodium 136 mmol/L (137-145); Total Protein 6.8 g/dL (6.3-8.2); Triglycerides 95 mg/dL (<150)
[2025-02-16 09:08] LABS: Thyroid Stimulating Hormone 0.567 uIU/mL (0.465-4.680)
[2025-02-16 09:27] LABS: Vitamin B12 830.0 pg/mL (239-931)
[2025-02-16 15:51] LABS: MALB Creatinine Ratio < 16.8 mg/g (0-30)
== END 2025-02-16 07:12 | disposition home or self-care (01) ==
LOC: ANHLAB 07:12
PROVIDERS: PCP Family Medicine; Visit Provider Student in an Organized Health Care Education/Training Program
DX: E78.2 Mixed hyperlipidemia (principal); I10 Essential (primary) hypertension; E11.9 Type 2 diabetes mellitus without complications; E78.5 Hyperlipidemia, unspecified; E03.9 Hypothyroidism, unspecified; E66.01 Morbid (severe) obesity due to excess calories; Z68.42 Body mass index [BMI] 45.0-49.9, adult; R53.83 Other fatigue
CPT/HCPCS: 36415; 80053; 80061; 82043; 82607; 83036; 84439; 84443; 85025